=== PATIENT | male | born 1985 | race Caucasian/White ===

== ENCOUNTER → 2017-10-03 | Emergency (ER) | payer BC, OTHER ==
[~2017-10-03] VITALS: Ht 177.8 cm; Wt 70.0 kg
[~2017-10-03] MED LIST: ERYT1OIN6 LEFTEYE; FLURBIPROFEN 0.03% EACHEYE SCH; PROPARACAINE/FLUORESCEIN ophthalmic drops 5ml bottle LEFTEYE ONE; proparacaine 0.5% ophthalmic drops 15ml LEFTEYE ONE
[2017-10-03 16:19] VITALS: BP 124/93
== END | disposition home or self-care (01) ==
LOC: ER 16:19
DX: T15.02XA Foreign body in cornea, left eye, initial encounter (principal); X58.XXXA Exposure to other specified factors, initial encounter; Y93.89 Activity, other specified; Y92.89 Other specified places as the place of occurrence of the external cause; Y99.8 Other external cause status
CPT/HCPCS: 65205; 65222; 99284

== ENCOUNTER 2019-02-07 21:40 | Emergency (ER) | payer OTHER ==
[~2019-02-07] VITALS: Ht 177.8 cm; Wt 90.9 kg
[~2019-02-07 21:40] MED LIST changes: -ERYT1OIN6 LEFTEYE; -FLURBIPROFEN 0.03% EACHEYE SCH; +LIDOcaine 1% W/epiNEPHrine 1:100,000 20ml vial ONE; -PROPARACAINE/FLUORESCEIN ophthalmic drops 5ml bottle LEFTEYE ONE; -proparacaine 0.5% ophthalmic drops 15ml LEFTEYE ONE
[2019-02-07 21:46] VITALS: BP 118/79
[2019-02-07] MEDS ORDERED: CEPH250T PO (21:47)
[2019-02-07] MEDS ORDERED: bacitracin 15gm ointment TP ONE (21:50)
[2019-02-07] MEDS ORDERED: TETanus/Pertussis (Acell)/Diphther VAC/PF (Tdap-Adult) 0.5ml syringe IM ONE (21:50)
--- NOTE | 2019-02-07 22:03 | NUR ---
med scanner room 5 not working. 2 pt identifiers recevieved; med and dose verified.
== END 2019-02-07 22:14 | disposition home or self-care (01) ==
LOC: ER 21:40
DX: S81.811A Laceration without foreign body, right lower leg, initial encounter (principal); S81.831A Puncture wound without foreign body, right lower leg, initial encounter; Z79.2 Long term (current) use of antibiotics; W22.8XXA Striking against or struck by other objects, initial encounter; Y93.89 Activity, other specified; Y92.89 Other specified places as the place of occurrence of the external cause; Y99.0 Civilian activity done for income or pay
CPT/HCPCS: 12001; 90471; 99283

== ENCOUNTER 2022-06-02 22:16 | Emergency (ER) | payer BC, OTHER ==
[~2022-06-02] VITALS: Ht 177.8 cm; Wt 90.9 kg
[2022-06-02 22:31] VITALS: BP 133/85
[2022-06-02] MEDS ORDERED: proparacaine 0.5% ophthalmic drops 15ml LEFTEYE ONE (22:50)
[2022-06-02] MEDS ORDERED: fluorescein sod 1mg ophthalmic strip EACHEYE ONE (22:50)
[2022-06-02] MEDS ORDERED: ciprofloxacin 0.3% 2.5ml ophthalmic solution LEFTEYE STA (23:05)
[2022-06-02] MEDS ORDERED: CIPR2.5D21 LEFTEYE (23:09)
== END 2022-06-02 23:25 | disposition home or self-care (01) ==
LOC: ER 22:17
DX: S05.02XA Injury of conjunctiva and corneal abrasion without foreign body, left eye, initial encounter (principal); W54.1XXA Struck by dog, initial encounter; Y93.89 Activity, other specified; Y92.89 Other specified places as the place of occurrence of the external cause; Y99.8 Other external cause status
CPT/HCPCS: 99283